=== PATIENT | female | born 1995 | race Caucasian/White ===

== ENCOUNTER 2017-10-11 20:28 | Emergency (ER) | payer OTHER ==
[~2017-10-11] VITALS: Ht 154.9 cm; Wt 65.9 kg
[~2017-10-11 20:28] MED LIST: ALLEGRA-D 241 TABLET PO; ATARAX,VISTARIL25 MG PO; CIPRO500 MG PO; MOTRIN IB200 MG PO; SUBOXONE 12 MG1 EACH SL; UNISOM50 MG PO
[2017-10-11 20:50] VITALS: BP 117/73
[2017-10-11 21:15] LABS: APPEARANCE CLOUDY ((CLEAR)); BILIRUBIN NEGATIVE; BLOOD NEGATIVE; COLOR YELLOW ((YELLOW)); GLUCOSE (STRIP) NEGATIVE; KETONES NEGATIVE; LEUKOCYTES TRACE; NITRITE NEGATIVE; PROTEIN (STRIP) NEGATIVE; SPECIFIC GRAVITY 1.016 (1.000-1.030); UROBILINOGEN 0.2 MG/DL (0.2-1.0)
[2017-10-11 21:33] LABS: HEMATOCRIT 37.3 % (36.0-46.0); HEMOGLOBIN 12.6 G/DL (11.9-15.5); MCH 29.4 PG (29.0-34.0); MCHC 33.8 G/DL (30.0-36.0); MCV 87.1 FL (83-99); PLATELET COUNT 340 K/uL (156-360); RBC DIS.WIDTH-CV 13.6 % (11.8-14.6); RBC DIS.WIDTH-SD 43.3 % (39-53); RED BLOOD COUNT 4.28 M/uL (3.80-5.20); WHITE BLOOD COUNT 8.5 K/uL (4.1-10.2)
[2017-10-11 21:43] LABS: AMORPHOUS URATES CRYSTALS 3+; BACTERIA 2+ /HPF; EPITHELIAL CELLS 3+ /HPF; MUCUS NONE SEEN /LPF; RED BLOOD CELLS 0-5 /HPF (0-5); UCUL ADDED? YES; WHITE BLOOD CELLS 0-5 /HPF (0-5)
[2017-10-11 21:47] LABS: ALBUMIN 4.6 g/dL (3.2-4.8); CHLORIDE 106 mEq/L (99-109); POTASSIUM 3.7 mEq/L (3.7-5.4); SODIUM 140 mEq/L (136-147)
[2017-10-11 21:49] LABS: GLUCOSE 85 mg/dL (70-99)
[2017-10-11 21:51] LABS: TOTAL BILIRUBIN 0.5 mg/dL (0.0-1.0)
[2017-10-11 21:53] LABS: ALKALINE PHOSPHATASE 65 IU/L (3-129); CREATININE 0.8 mg/dL (0.6-1.3); GFR ESTIMATE (CALCULATED) > 59 mL/min/
[2017-10-11 21:54] LABS: UREA NITROGEN (BUN) 11 mg/dL (9-23)
[2017-10-11 21:55] LABS: AST (GOT) 47 IU/L (2-34)
[2017-10-11 21:56] LABS: ALT (GPT) 102 IU/L (3-49); LIPASE 22 U/L (1.0-51.0)
[2017-10-11 22:03] LABS: QUANTITATIVE HCG < 4.0 MIU/ML
== END 2017-10-11 22:29 | disposition left against medical advice (07) ==
LOC: EME 20:28
DX: R10.32 Left lower quadrant pain (principal); M54.9 Dorsalgia, unspecified; R19.7 Diarrhea, unspecified; Z53.21 Procedure and treatment not carried out due to patient leaving prior to being seen by health care provider
CPT/HCPCS: 80053; 81003; 83690; 84702; 85027; 87086